=== PATIENT | female | born 1965 | race Caucasian/White ===

== ENCOUNTER → 2016-06-11 | Outpatient (CLI) | payer MEDICAID | LOC: CIMAGING 14:21 | DX: M54.5 Low back pain (principal); M51.36 Other intervertebral disc degeneration, lumbar region; M54.2 Cervicalgia; M50.30 Other cervical disc degeneration, unspecified cervical region; G89.4 Chronic pain syndrome | CPT/HCPCS: 72052-PO; 72114-PO ==

== ENCOUNTER 2016-11-16 17:48 | Emergency (ER) | payer MEDICAID ==
[2016-11-16 18:00] VITALS: TEMP 98.1
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
[2016-11-16] MEDS ORDERED: LIDOCAINE 5% 1 EA PATCH TD ONE (18:41)
[2016-11-16] MEDS ORDERED: KETOROLAC 15 MG/1 ML SDV IVP ONE (18:41)
[2016-11-16] MEDS ORDERED: DIAZEPAM 10 MG/2 ML SYR IVP ONE (18:41)
[2016-11-16 18:51] LABS: COLOR PALE YELLOW; LEUKOCYTE ESTERASE,URINE NEGATIVE (NEGATIVE); NITRITE,URINE NEGATIVE (NEGATIVE)
[2016-11-16] MEDS ORDERED: HYDROmorphONE/DILAUDID 1 MG/ML INJ IVP ONE (19:33)
[2016-11-16 19:44] VITALS: BP 162/104; PULSE 77; RESP 16; O2SAT 92
[2016-11-16] MEDS ORDERED: PATCH REMOVAL 1 EA PATCH TD SCH (21:00)
== END 2016-11-16 22:15 | disposition home or self-care (01) ==
DX: M54.5 Low back pain (principal); G89.29 Other chronic pain; F17.200 Nicotine dependence, unspecified, uncomplicated
CPT/HCPCS: 96374; J1170; J1885

== ENCOUNTER → 2018-03-17 | Outpatient (CLI) | payer MEDICAID | LOC: FIMAGING 11:52 | PROVIDERS: ATTEND Internal Medicine Cardiovascular Disease | DX: I10 Essential (primary) hypertension (principal); Z87.440 Personal history of urinary (tract) infections ==